=== PATIENT | female | born 1980 | race Caucasian/White ===

== ENCOUNTER 2020-11-01 15:46 | Inpatient (IN) | payer BC ==
[2020-11-01] MEDS ORDERED: Sodium Chloride 0.9% 10 ML Syringe FLUSH PRN (16:25)
[2020-11-01] MEDS ORDERED: Acetaminophen 325 MG Tab PO PRN (16:25)
[2020-11-01] MEDS ORDERED: Oxytocin/Normal Saline 30 UNIT/500 ML BAG IV SCH ×2 (16:30→18:15)
[2020-11-01] MEDS ORDERED: Lactated Ringers 1,000 ML IV SCH (16:30)
--- NOTE | 2020-11-01 16:36 | PCM.LDHP ---
L&D History of Present Illness - General Date of Service: 11/01/20 Admit Problem/Dx: Patient Status Order with Admit Dx/Problem 11/01/20 16:25 Patient Status [ADT] Routine Admission Diagnosis/Problem Admission Diagnosis/Problem Gestational diabetes mellitus Source of Information: Patient - History of Present Illness Introduction:: Patient is 40 yo at 39w0d who is here today for induction of labor. has been complicated by advanced maternal age and diet controlled gestational diabetes. Her blood sugars have been at goal throughout . Growth ultrasound was appropriate. She did have COVID in the first trimester but recovered without problems. She has been doing weekly BPP and NSTs for the past 4 weeks. Her BPP today was 6/8, 2 off for breathing. Her NST was reactive. Decision made to induce today as she as multiple indications for 39 week induction and abnormal BPP. Baby has been active. She's had bianca hernadez contractions. Denies vaginal bleeding, discharge, or leakage of fluid. She is GBS negative. - Related Data Allergies/Adverse Reactions: Allergies Allergy/AdvReac Type Severity Reaction Status Date / Time minerals [From Enviro Stress] Allergy Rash Verified 11/01/20 19:36 Penicillins Allergy Hives Verified 11/01/20 19:36 sulfamethoxazole Allergy Hives Verified 11/01/20 19:36 [From Bactrim] trimethoprim [From Bactrim] Allergy Hives Verified 11/01/20 19:36 vitamin B complex and C Allergy Rash Verified 11/01/20 19:36 [From Enviro Stress] vitamin E (d-alpha Allergy Rash Verified 11/01/20 19:36 tocopherol) [From Enviro Stress] Home Medications: Home Meds Ferrous Sulfate [Iron] 325 mg PO DAILY 10/04/20 [History] Pnv No.95/Ferrous Fum/Folic AC [ Caplet] 1 tab PO DAILY 10/04/20 [Histor y] Past Medical History Other Dermatologic History: History of oral cold sores - Infectious Disease History Other Infectious Disease History: History of COVID 19 infection in first trimester - Past Surgical History Head Surgeries/Procedures: Reports: None Social & Family History - Family History Family Medical History: No Pertinent Family History Cardiac: Reports: Hypertension Neurological: Reports: CVA, Parkinson's Oncologic: Reports: Breast, Lung - Tobacco Use Tobacco Use Status *Q: Former Tobacco User Tobacco Use Within Last Twelve Months: Cigarettes - Caffeine Use Caffeine Use: Reports: None - Alcohol Use Alcohol Use History: No - Recreational Drug Use Recreational Drug Use: No - Living Situation & Occupation Living situation: Reports: Occupation: Employed H&P Review of Systems - Review of Systems: Review Of Systems: See Below General: Denies: Fever, Chills HEENT: Denies: Headaches, Visual Changes Pulmonary: Denies: Shortness of Breath, Cough Cardiovascular: Denies: Chest Pain, Edema, Lightheadedness Gastrointestinal: Denies: Abdominal Pain, Diarrhea, Nausea, Vomiting Neurological: Denies: Headache, Weakness Hematologic/Lymphatic: Reports: Anemia L&D Exam - Exam Exam: See Below - Vital Signs Vital Signs: Vital Signs - 24 hr 11/01/20 11/01/20 11/01/20 16:00 16:30 18:30 Temperature [ 98.8 F 97.9 F 98.0 F Temporal] Pulse, 85 89 75 Peripheral [ Right Brachial] Respiratory 14 14 14 Rate Blood Pressure 124/80 142/85 H 132/84 [Right Upper Arm] 11/01/20 11/01/20 11/01/20 19:00 21:20 22:41 Temperature [ 97.4 F 97.4 F 97.7 F Temporal] Pulse, 79 69 74 Peripheral [ Right Brachial] Respiratory 18 16 18 Rate Blood Pressure 122/84 125/81 120/76 [Right Upper Arm] - OB Specific Contraction Frequency (min): occasional Movement: Active Heart Tones: Present Heart Rate (FHR) Variability: Moderate (6-25 bpm) Presentation: Vertex - Vivas Score Vivas Score Cervix Position: Posterior Vivas Score Consistency: Firm Vivas Score Effacement: 0-30% Vivas Score Dilation: Closed Vivas Score Infant's Station: -3 Vivas Score Total: 0 - Exam General: Alert, Oriented HEENT: Conjunctiva Clear Neck: Supple, Trachea Midline Lungs: Clear to Auscultation, Normal Respiratory Effort Cardiovascular: Regular Rate, Regular Rhythm GI/Abdominal Exam: Soft, Non-Tender Extremities: Non-Tender, No Pedal Edema Skin: Warm, Dry Neurological: Reflexes Equal Bilateral Psychiatric: Alert, Normal Affect, Normal Mood - Patient Data Result Diagrams: 11/01/20 18:25 - Problem List (1) AMA (advanced maternal age) multigravida 35+ SNOMED Code(s): 487329803 ICD Code: O09.529 - SUPERVISION OF ELDERLY MULTIGRAVIDA, UNSPECIFIED TRIMESTER Status: Acute Current Visit: Yes (2) Diet controlled gestational diabetes mellitus SNOMED Code(s): 82430266, 547733516, 820798138 ICD Code: O24.410 - GESTATIONAL DIABETES MELLITUS IN , DIET CONTROLLED Status: Acute Current Visit: Yes (3) Rubella immune SNOMED Code(s): 844626175 ICD Code: Z78.9 - OTHER SPECIFIED HEALTH STATUS Status: Acute Current Visit: Yes (4) Anemia affecting in third trimester SNOMED Code(s): 57101605, 91318863 ICD Code: O99.013 - ANEMIA COMPLICATING , THIRD TRIMESTER Status: Acute Current Visit: Yes (5) History of COVID-19 SNOMED Code(s): 742602119233573838, 642965048461243293 ICD Code: Z86.16 - PERSONAL HISTORY OF COVID-19 Status: Acute Current Visit: Yes Problem List Initiated/Reviewed/Updated: Yes Orders Last 24hrs: Active Orders 24 hr Category Date Time Status Patient Status [ADT] Routine ADT 11/01/20 16:25 Ordered Communication Order [RC] ASDIRECTED Care 11/01/20 16:25 Ordered Communication Order [RC] ASDIRECTED Care 11/01/20 16:25 Ordered Communication Order [RC] ASDIRECTED Care 11/01/20 16:25 Ordered Communication Order [RC] ASDIRECTED Care 11/01/20 16:25 Ordered Communication Order [RC] ASDIRECTED Care 11/01/20 16:25 Ordered Monitoring [RC] PER UNIT ROUTINE Care 11/01/20 16:25 Ordered Notify Provider Vital Signs OB [RC] ASDIRECTED Care 11/01/20 16:25 Ordered Notify Provider [RC] PRN Care 11/01/20 16:25 Ordered Notify Provider [RC] PRN Care 11/01/20 16:25 Ordered Notify Provider [RC] STAT Care 11/01/20 16:25 Ordered Peripheral IV Care [RC] . DIRECTED Care 11/01/20 16:32 Ordered Up ad Opal [RC] PER UNIT ROUTINE Care 11/01/20 16:25 Ordered Vaginal Exam [RC] PRN Care 11/01/20 16:25 Ordered Vital Signs [RC] PER UNIT ROUTINE Care 11/01/20 16:25 Ordered Regular Diet [DIET] Diet 11/01/20 Dinner Ordered CBC W/O DIFF,HEMOGRAM [HEME] Routine Lab 11/01/20 16:25 Ordered CORONAVIRUS COVID-19 DOMINGUEZ [MOLEC] Routine Lab 11/01/20 16:35 Ordered Acetaminophen [TylenoL] Med 11/01/20 16:25 Ordered 650 mg PO Q4H PRN Lactated Ringers [Ringers, Lactated] 1,000 ml Med 11/01/20 16:30 Ordered IV ASDIRECTED Oxytocin 30 Units in NS @ 2 MUNITS/MIN(500ml) Med 11/01/20 16:30 Ordered Oxytocin/Normal Saline [Pitocin in NS 30 UNIT/500 ML] 30 unit in 500 ml IV TITRATE Sodium Chloride 0.9% [Saline Flush] Med 11/01/20 16:25 Ordered 10 ml FLUSH ASDIRECTED PRN miSOPROStoL [Cytotec] Med 11/01/20 16:25 Ordered 25 mcg VAG Q4H PRN Peripheral IV Insertion Adult [OM.PC] Urgent Oth 11/01/20 16:25 Ordered Medication Orders Acetaminophen (Acetaminophen 325 Mg Tab) 650 mg PO Q4H PRN PRN Reason: Pain/Fever Lactated Ringer's (Ringers, Lactated) 1,000 mls @ 999 mls/hr IV ASDIRECTED ROSANGELA Oxytocin/Sodium Chloride (Pitocin In Ns 30 Unit/500 Ml) 30 unit in 500 mls @ 2 mls/hr IV TITRATE ROSANGELA; Protocol Misoprostol (Misoprostol 25 Mcg (1/4 Of 100 Mcg) Tab) 25 mcg VAG Q4H PRN PRN Reason: cervical ripening Sodium Chloride (Sodium Chloride 0.9% 10 Ml Syringe) 10 ml FLUSH ASDIRECTED PRN PRN Reason: Keep Vein Open Assessment/Plan Comment:: Admit for induction of labor. Will start with cytotec up to 8 times. Risks/benefits of induction were discussed with patient. AROM when appropriate. Does desire intrathecal. Anticipate vaginal delivery. Valeria Cali MD
[2020-11-01] MEDS ORDERED: Misoprostol 400 MCG (4 X 100 MCG TAB) RECTAL PRN (18:09)
[2020-11-01] MEDS ORDERED: Ondansetron 4 MG/2 ML SDV IVPUSH PRN (18:09)
[2020-11-01] MEDS ORDERED: Methylergonovine 0.2 MG/1 ML Amp IM PRN (18:09)
[2020-11-01] MEDS ORDERED: Lidocaine 1% 30 ML SDV INJECT PRN (18:09)
[2020-11-01] MEDS ORDERED: Tranexamic Acid 1,000 MG in Sodium Chloride 0.9% 100 ML IV PRN (18:09)
[2020-11-01] MEDS ORDERED: Carboprost Tromethamine 250 MCG/1 ML Amp IM PRN (18:09)
[2020-11-01] MEDS ORDERED: hydrOXYzine HCl 25 MG Tab PO PRN (18:13)
[2020-11-01] MEDS: Misoprostol 25 MCG (1/4 of 100 MCG) Tab VAG PRN ×2 (18:45→22:50)
[2020-11-02] MEDS: Lactated Ringers 1,000 ML IV SCH ×3 (02:30→07:35)
[2020-11-02] MEDS: Misoprostol 25 MCG (1/4 of 100 MCG) Tab VAG PRN (03:50)
[2020-11-02] MEDS ORDERED: Nalbuphine 10 MG/1 ML Vial IM ONE (04:48)
[2020-11-02] MEDS ORDERED: fentaNYL 100 MCG/2 ML SDV IVPUSH ONE (06:15)
[2020-11-02] MEDS ORDERED: Sodium Bicarbonate 4.2% 2.5 MEQ/5 ML SDV ONE ×2 (07:05→07:14)
[2020-11-02] MEDS ORDERED: fentaNYL 100 MCG/2 ML SDV ITHECAL ONE (07:05)
[2020-11-02] MEDS ORDERED: Sodium Chloride 0.9% 20 ML SDV ONE (07:05)
[2020-11-02] MEDS ORDERED: EPINEPHrine 1 MG/ML SDV ONE ×2 (07:05→07:14)
[2020-11-02] MEDS ORDERED: fentaNYL 100 MCG/2 ML SDV ONE (07:13)
--- NOTE | 2020-11-02 07:39 | PCM.SN.2 ---
- Free Text/Narrative Note: Intrathecal. Sitting position, sterile prep and drape. 1% lidocaine w bicarb for skinwheal to L2 L3 interspace x 2. Introducer x 2, 24 ga pencan x 3. 1:1000 pf epi wash, 20 mcg pf sufenta, 30 mcg pf fentanyl, 0.4 ml pf NS and 6 mg of 0.75% pf Marcaine injected after CSF aspiration. Pt to L lateral position . Procedure time 0705 to 0740
[2020-11-02] MEDS ORDERED: Acetaminophen 325 MG Tab PO PRN (08:28)
[2020-11-02] MEDS ORDERED: Docusate Sodium 100 MG Cap PO PRN (08:28)
[2020-11-02] MEDS ORDERED: Simethicone 80 MG Tab.Chew PO PRN (08:28)
[2020-11-02] MEDS ORDERED: Oxytocin 10 Units/1 ML SDV IM PRN (08:28)
[2020-11-02] MEDS ORDERED: Benzocaine/Menthol 20%-0.5% Spray 78 GM Cannister TOP PRN (08:28)
--- NOTE | 2020-11-02 08:45 | PCM.DEL ---
L & D Note - General Info Date of Service: 11/02/20 - Delivery Note Labor: Augmented by Oxytocin Cervical Ripening Method: Misoprostil Delivery Outcome: Livebirth Delivery Method: Spontaneous Vaginal Delivery-Single Presentation: Left Occiput Anterior (CELSA) Nuchal Cord: Present, Reduced Anesthesia Type: Intrathecal Amniotic Fluid Description: Bloody Episiotomy Type: None Laceration: 2nd Degree, Perineal Suture type: Vicryl Suture size: 3-0 Placenta: Intact, Spontaneous Cord: 3 Vessels Estimated Blood Loss: 350 Resuscitation Needed: Yes : Bulb Syringe, Stimulated, Warmed Provider: Valeria Cali Score 1 min: 7 Score 5 min: 9 Delivery Comments (Free Text/Narrative):: Patient is female who was admitted for induction of labor at 39w0d for diet controlled gestational diabetes, advanced maternal age, and abnormal BPP score of 6/8 on day of admission. She received 2 doses of cytotec. She did not require any pitocin. She progressed quickly and did get an intrathecal just prior to delivery. Baby did have recurrent variable decels into the 70s-80s with the fast cervical dilation. Mother progressed to complete and pushed for 30 minutes. Viable female infant was delivered via . Anterior shoulder was delivered with gentle traction. Body nuchal noted and reduced as baby delivered. was placed on maternal abdomen. Apgars were 7 and 9. Delayed cord clamping for 1 minute was done and cord was then clamped and cut. Placenta delivered intact with via active management. Oxytocin was initiated immediately following the delivery of the placenta. Rate increased to 999 mls/hr as uterine atony present with brisk bleeding. Bleeding did slow with fundal massage. Cervix, vagina, and perineum were explored. A 2nd degree perineal laceration was repaired int eh usual fashion. Mother and were stable and remained in delivery room. - General Info Date of Service: 11/02/20 - Patient Data Vitals - Most Recent: Last Vital Signs Temp 97.9 F 11/02/20 02:30 Pulse 70 11/02/20 02:30 Resp 16 11/02/20 02:30 BP 140/72 11/02/20 02:30 Pulse Ox Weight - Most Recent: 74.843 kg Lab Results Last 24 Hours: Laboratory Results - last 24 hr 11/01/20 11/01/20 Range/Units 16:55 18:25 WBC 8.6 (5.0-10.0) 10^3/uL RBC 3.60 L (4.2-5.4) 10^6/uL Hgb 11.1 L (12.0-16.0) g/dL Hct 33.2 L (37.0-47.0) % MCV 92.2 (80-100) fL MCH 30.8 (27.0-34.0) pg MCHC 33.4 (33.0-35.0) g/dL Plt Count 226 (150-450) 10^3/uL SARS-CoV-2 RNA (DOMINGUEZ) Negative (NEGATIVE) Med Orders - Current: Current Medications Acetaminophen (Acetaminophen 325 Mg Tab) 650 mg PO Q6H PRN PRN Reason: Pain/Fever Benzocaine/Menthol (Benzocaine/Menthol 20%-0.5% [place] 78 Gm Cannister) 0 gm TOP Q4H PRN PRN Reason: Perineal comfort measures Carboprost Tromethamine (Carboprost Tromethamine 250 Mcg/1 Ml Amp) 250 mcg IM ASDIRECTED PRN PRN Reason: HEMORRHAGE Docusate Sodium (Docusate Sodium 100 Mg Cap) 100 mg PO BID PRN PRN Reason: Constipation Hydroxyzine HCl (Hydroxyzine Hcl 25 Mg Tab) 25 mg PO BEDTIME PRN PRN Reason: Sleep Last Admin: 11/01/20 22:49 Dose: 25 mg Documented by: Oxytocin/Sodium Chloride (Pitocin In Ns 30 Unit/500 Ml) 30 unit in 500 mls @ 2 mls/hr IV TITRATE ROSANGELA; Protocol Tranexamic Acid 1,000 mg/ (Sodium Chloride) 110 mls @ 660 mls/hr IV ONETIME PRN PRN Reason: Bleeding Oxytocin/Sodium Chloride (Pitocin In Ns 30 Unit/500 Ml) 30 unit in 500 mls @ 2 mls/hr IV TITRATE ROSANGELA; Protocol Ibuprofen (Ibuprofen 800 Mg Tab) 800 mg PO Q8H PRN PRN Reason: Cramping Lidocaine HCl (Lidocaine 1% 30 Ml Sdv) 30 ml INJECT ASDIRECTED PRN PRN Reason: Perineal Repair Methylergonovine Maleate (Methylergonovine 0.2 Mg/1 Ml Amp) 0.2 mg IM ASDIRECTED PRN PRN Reason: Hemorrhage Misoprostol (Misoprostol 400 Mcg (4 X 100 Mcg Tab)) 800 mcg RECTAL ASDIRECTED PRN PRN Reason: Hemorrhage Ondansetron HCl (Ondansetron 4 Mg/2 Ml Sdv) 4 mg IVPUSH Q4H PRN PRN Reason: Nausea/Vomiting Oxytocin (Oxytocin 10 Units/1 Ml Sdv) 10 unit IM ONETIME PRN PRN Reason: Bleeding Prenat Multivit/[place]/Iron/Folic Ac ( Multivitamin With Calcium/Folic Acid/Iron Tab) 1 each PO DAILY [facility] Simethicone (Simethicone 80 Mg Tab.Chew) 80 mg PO Q4H PRN PRN Reason: Gas Sodium Chloride (Sodium Chloride 0.9% 10 Ml Syringe) 10 ml FLUSH ASDIRECTED PRN PRN Reason: Keep Vein Open Discontinued Medications Acetaminophen (Acetaminophen 325 Mg Tab) 650 mg PO Q4H PRN PRN Reason: Pain/Fever Epinephrine HCl (Epinephrine 1 Mg/Ml Sdv) Confirm Administered Dose 1 mg .ROUTE .STK-MED ONE Stop: 11/02/20 07:15 Fentanyl (Fentanyl 100 Mcg/2 Ml Sdv) 100 mcg IVPUSH ONETIME ONE Stop: 11/02/20 06:16 Last Admin: 11/02/20 06:25 Dose: 100 mcg Documented by: Fentanyl (Fentanyl 100 Mcg/2 Ml Sdv) Confirm Administered Dose 100 mcg .ROUTE .STK-MED ONE Stop: 11/02/20 07:14 Lactated Ringer's (Ringers, Lactated) 1,000 mls @ 999 mls/hr IV ASDIRECTED ROSANGELA Lactated Ringer's (Ringers, Lactated) 1,000 mls @ 125 mls/hr IV ASDIRECTED ROSANGELA Last Admin: 11/02/20 06:25 Dose: 125 mls/hr Documented by: Misoprostol (Misoprostol 25 Mcg (1/4 Of 100 Mcg) Tab) 25 mcg VAG Q4H PRN PRN Reason: cervical ripening Last Admin: 11/01/20 22:50 Dose: 25 mcg Documented by: Nalbuphine HCl (Nalbuphine 10 Mg/1 Ml Vial) 20 mg IM ONETIME ONE Stop: 11/02/20 04:49 Last Admin: 11/02/20 04:57 Dose: 20 mg Documented by: Sodium Bicarbonate (Sodium Bicarbonate 4.2% 2.5 Meq/5 Ml Sdv) Confirm Administered Dose 2.5 meq .ROUTE .STK-MED ONE Stop: 11/02/20 07:15 Sufentanil Citrate (Sufentanil 50 Mcg/1 Ml Amp) Confirm Administered Dose 50 mcg .ROUTE .STK-MED ONE Stop: 11/02/20 07:15 - Problem List & Annotations (1) AMA (advanced maternal age) multigravida 35+ SNOMED Code(s): 035451251 Code(s): O09.529 - SUPERVISION OF ELDERLY MULTIGRAVIDA, UNSPECIFIED TRIMESTER Status: Acute Current Visit: Yes (2) Diet controlled gestational diabetes mellitus SNOMED Code(s): 90777876, 362451902, 167681645 Code(s): O24.410 - GESTATIONAL DIABETES MELLITUS IN , DIET CONTROLLED Status: Acute Current Visit: Yes (3) Rubella immune SNOMED Code(s): 250352104 Code(s): Z78.9 - OTHER SPECIFIED HEALTH STATUS Status: Acute Current Visit: Yes (4) Anemia affecting in third trimester SNOMED Code(s): 17079071, 15962470 Code(s): O99.013 - ANEMIA COMPLICATING , THIRD TRIMESTER Status: Acute Current Visit: Yes (5) History of COVID-19 SNOMED Code(s): 527912072837051652, 084032836234790072 Code(s): Z86.16 - PERSONAL HISTORY OF COVID-19 Status: Acute Current Visit: Yes - Problem List Review Problem List Initiated/Reviewed/Updated: Yes - My Orders Last 24 Hours: My Active Orders 11/01/20 16:25 Patient Status [ADT] Routine Vital Signs [RC] PER UNIT ROUTINE Sodium Chloride 0.9% [Saline Flush] 10 ml FLUSH ASDIRECTED PRN Peripheral IV Insertion Adult [OM.PC] Urgent 11/01/20 16:30 Oxytocin/Normal Saline [Pitocin in NS 30 UNIT/500 ML] 30 unit in 500 ml IV TITRATE 11/01/20 16:32 Peripheral IV Care [RC] . DIRECTED 11/01/20 Dinner Regular Diet [DIET] 11/01/20 18:09 Carboprost Tromethamine [Hemabate DS] 250 mcg IM ASDIRECTED PRN Lidocaine 1% [Xylocaine-MPF 1%] 30 ml INJECT ASDIRECTED PRN Methylergonovine [Methergine] 0.2 mg IM ASDIRECTED PRN Ondansetron [Zofran] 4 mg IVPUSH Q4H PRN Tranexamic Acid [Cyklokapron] 1,000 mg Sodium Chloride 0.9% [Normal Saline] 100 ml IV ONETIME miSOPROStoL [Cytotec] 800 mcg RECTAL ASDIRECTED PRN Resuscitation Status Routine 11/01/20 18:10 Communication Order [RC] ASDIRECTED Saline Lock Insert [OM.PC] Routine 11/01/20 18:13 hydrOXYzine HCL [Atarax] 25 mg PO BEDTIME PRN 11/01/20 18:15 Oxytocin/Normal Saline [Pitocin in NS 30 UNIT/500 ML] 30 unit in 500 ml IV TITRATE 11/02/20 Breakfast Regular Diet [DIET] 11/02/20 08:00 Vital Signs [RC] PFP 11/02/20 08:28 Up ad Opal [RC] ASDIRECTED Acetaminophen [TylenoL] 650 mg PO Q6H PRN Benzocaine/Menthol [Dermoplast Pain Relief 20%-0.5% [place]] See Dose Instructions TOP Q4H PRN Docusate Sodium [Colace] 100 mg PO BID PRN Ibuprofen [Motrin] 800 mg PO Q8H PRN Oxytocin [Pitocin] 10 unit IM ONETIME PRN Simethicone 80 mg PO Q4H PRN Assess Lochia [WOMSER] Per Unit Routine Assess Uterine Involution [WOMSER] Per Unit Routine Breast Pump [WOMSER] Per Unit Routine Ice Therapy [OM.PC] Per Unit Routine Perineal Care [OM.PC] Per Unit Routine Saline Lock Insert [OM.PC] Urgent Sitz Bath [OM.PC] Per Unit Routine 11/02/20 09:00 Vit with Ca/FA/Iron [ Plus Iron] 1 each PO DAILY 11/02/20 Lunch Regular Diet [DIET] 11/02/20 Dinner Regular Diet [DIET] 11/03/20 08:28 CBC W/O DIFF,HEMOGRAM [HEME] Routine - Plan Plan:: Admit for induction of labor. Will start with cytotec up to 8 times. Risks/benefits of induction were discussed with patient. AROM when appropriate. Does desire intrathecal. Anticipate vaginal delivery. Valeria Cali MD
[2020-11-02] MEDS: Prenatal Multivitamin with Calcium/Folic Acid/Iron Tab PO SCH (10:11)
[2020-11-02] MEDS: Ibuprofen 800 MG Tab PO PRN (18:49)
[2020-11-03] MEDS: Ibuprofen 800 MG Tab PO PRN (06:57)
--- NOTE | 2020-11-03 09:50 | PCM.DCSUM1 ---
Discharge Summary - Hospital Course Free Text/Narrative:: Patient is female who was admitted at 39w0d for induction of labor secondary to AMA, diet controlled GDM and abnormal BPP of 6/8 on day of admission. She received 2 doses of cytotec. She delivered viable female without complication. Apgars were 7 and 9. She had an uneventful hospital stay. she desired 24 hour discharge. Mother is and was doing well. Mother and baby were discharged. Plan to follow up at 6 week post v isit. - Discharge Data Discharge Date: 11/03/20 Discharge Disposition: Home, Self-Care 01 Condition: Good - Referral to Home Health Primary Care Physician: Valeria Cali MD - Discharge Diagnosis/Problem(s) (1) AMA (advanced maternal age) multigravida 35+ SNOMED Code(s): 221797152 ICD Code: O09.529 - SUPERVISION OF ELDERLY MULTIGRAVIDA, UNSPECIFIED TRIMESTER Status: Acute (2) Diet controlled gestational diabetes mellitus SNOMED Code(s): 55938382, 279884525, 206706236 ICD Code: O24.410 - GESTATIONAL DIABETES MELLITUS IN , DIET CONTROLLED Status: Acute (3) Rubella immune SNOMED Code(s): 228372603 ICD Code: Z78.9 - OTHER SPECIFIED HEALTH STATUS Status: Acute (4) Anemia affecting in third trimester SNOMED Code(s): 98761602, 67796869 ICD Code: O99.013 - ANEMIA COMPLICATING , THIRD TRIMESTER Status: Acute (5) History of COVID-19 SNOMED Code(s): 702862503625293943, 197401165280359454 ICD Code: Z86.16 - PERSONAL HISTORY OF COVID-19 Status: Acute - Discharge Plan *PRESCRIPTION DRUG MONITORING PROGRAM REVIEWED*: Not Applicable *COPY OF PRESCRIPTION DRUG MONITORING REPORT IN PATIENT JOSHUA: Not Applicable Home Medications: Home Meds Ferrous Sulfate [Iron] 325 mg PO DAILY 10/04/20 [History] Pnv No.95/Ferrous Fum/Folic AC [ Caplet] 1 tab PO DAILY 10/04/20 [History] Acetaminophen [Tylenol] 650 mg PO Q6H PRN tablet 11/03/20 [Rx] Docusate Sodium [Colace] 100 mg PO BID PRN cap 11/03/20 [Rx] Ibuprofen [Motrin] 800 mg PO Q8H PRN tablet 11/03/20 [Rx] Patient Handouts: Depression, Baby Blues, Care After Vaginal Delivery - Discharge Summary/Plan Comment DC Time >30 min.: No Total # of Minutes for Discharge Time: 30 minutes were spent examining and talking with patient. Discharge Summary/Plan Comment: Discharge to home. Post cares reviewed. Red flag signs/symptoms discussed. Follow up at 6 week post visit. - Patient Data Vitals - Most Recent: Last Vital Signs Temp 98 F 11/03/20 07:16 Pulse 80 11/03/20 07:16 Resp 18 11/03/20 07:16 BP 124/78 11/03/20 07:16 Pulse Ox 98 11/03/20 07:16 Weight - Most Recent: 74.843 kg Lab Results - Last 24 hrs: Laboratory Results - last 24 hr 11/03/20 Range/Units 06:20 WBC 11.0 H (5.0-10.0) 10^3/uL RBC 3.53 L (4.2-5.4) 10^6/uL Hgb 10.9 L (12.0-16.0) g/dL Hct 33.0 L (37.0-47.0) % MCV 93.5 (80-100) fL MCH 30.9 (27.0-34.0) pg MCHC 33.0 (33.0-35.0) g/dL Plt Count 200 (150-450) 10^3/uL Med Orders - Current: Current Medications Acetaminophen (Acetaminophen 325 Mg Tab) 650 mg PO Q6H PRN PRN Reason: Pain/Fever Last Admin: 11/02/20 20:47 Dose: 650 mg Documented by: Benzocaine/Menthol (Benzocaine/Menthol 20%-0.5% [place] 78 Gm Cannister) 0 gm TOP Q4H PRN PRN Reason: Perineal comfort measures Last Admin: 11/02/20 10:09 Dose: 1 spray Documented by: Carboprost Tromethamine (Carboprost Tromethamine 250 Mcg/1 Ml Amp) 250 mcg IM ASDIRECTED PRN PRN Reason: HEMORRHAGE Docusate Sodium (Docusate Sodium 100 Mg Cap) 100 mg PO BID PRN PRN Reason: Constipation Last Admin: 11/02/20 20:48 Dose: 100 mg Documented by: Hydroxyzine HCl (Hydroxyzine Hcl 25 Mg Tab) 25 mg PO BEDTIME PRN PRN Reason: Sleep Last Admin: 11/01/20 22:49 Dose: 25 mg Documented by: Oxytocin/Sodium Chloride (Pitocin In Ns 30 Unit/500 Ml) 30 unit in 500 mls @ 2 mls/hr IV TITRATE ROSANGELA; Protocol Tranexamic Acid 1,000 mg/ (Sodium Chloride) 110 mls @ 660 mls/hr IV ONETIME PRN PRN Reason: Bleeding Oxytocin/Sodium Chloride (Pitocin In Ns 30 Unit/500 Ml) 30 unit in 500 mls @ 2 mls/hr IV TITRATE ROSANGELA; Protocol Last Titration: 11/02/20 11:10 Dose: Infused Documented by: Ibuprofen (Ibuprofen 800 Mg Tab) 800 mg PO Q8H PRN PRN Reason: Cramping Last Admin: 11/03/20 06:57 Dose: 800 mg Documented by: Lidocaine HCl (Lidocaine 1% 30 Ml Sdv) 30 ml INJECT ASDIRECTED PRN PRN Reason: Perineal Repair Methylergonovine Maleate (Methylergonovine 0.2 Mg/1 Ml Amp) 0.2 mg IM ASDIRECTED PRN PRN Reason: Hemorrhage Misoprostol (Misoprostol 400 Mcg (4 X 100 Mcg Tab)) 800 mcg RECTAL ASDIRECTED PRN PRN Reason: Hemorrhage Ondansetron HCl (Ondansetron 4 Mg/2 Ml Sdv) 4 mg IVPUSH Q4H PRN PRN Reason: Nausea/Vomiting Last Admin: 11/02/20 07:00 Dose: 4 mg Documented by: Oxytocin (Oxytocin 10 Units/1 Ml Sdv) 10 unit IM ONETIME PRN PRN Reason: Bleeding Prenat Multivit/[place]/Iron/Folic Ac ( Multivitamin With Calcium/Folic Acid/Iron Tab) 1 each PO DAILY ROSANGELA Last Admin: 11/02/20 10:11 Dose: Not Given Documented by: Simethicone (Simethicone 80 Mg Tab.Chew) 80 mg PO Q4H PRN PRN Reason: Gas Sodium Chloride (Sodium Chloride 0.9% 10 Ml Syringe) 10 ml FLUSH ASDIRECTED PRN PRN Reason: Keep Vein Open Discontinued Medications Acetaminophen (Acetaminophen 325 Mg Tab) 650 mg PO Q4H PRN PRN Reason: Pain/Fever Epinephrine HCl (Epinephrine 1 Mg/Ml Sdv) Confirm Administered Dose 1 mg .ROUTE .STK-MED ONE Stop: 11/02/20 07:15 Last Admin: 11/02/20 20:46 Dose: Not Given Documented by: Fentanyl (Fentanyl 100 Mcg/2 Ml Sdv) 100 mcg IVPUSH ONETIME ONE Stop: 11/02/20 06:16 Last Admin: 11/02/20 06:25 Dose: 100 mcg Documented by: Fentanyl (Fentanyl 100 Mcg/2 Ml Sdv) Confirm Administered Dose 100 mcg .ROUTE .STK-MED ONE Stop: 11/02/20 07:14 Last Admin: 11/02/20 20:46 Dose: Not Given Documented by: Lactated Ringer's (Ringers, Lactated) 1,000 mls @ 999 mls/hr IV ASDIRECTED ROSANGELA Lactated Ringer's (Ringers, Lactated) 1,000 mls @ 125 mls/hr IV ASDIRECTED ROSANGELA Last Admin: 11/02/20 07:35 Dose: 125 mls/hr Documented by: Misoprostol (Misoprostol 25 Mcg (1/4 Of 100 Mcg) Tab) 25 mcg VAG Q4H PRN PRN Reason: cervical ripening Last Admin: 11/01/20 22:50 Dose: 25 mcg Documented by: Nalbuphine HCl (Nalbuphine 10 Mg/1 Ml Vial) 20 mg IM ONETIME ONE Stop: 11/02/20 04:49 Last Admin: 11/02/20 04:57 Dose: 20 mg Documented by: Sodium Bicarbonate (Sodium Bicarbonate 4.2% 2.5 Meq/5 Ml Sdv) Confirm Administered Dose 2.5 meq .ROUTE .STK-MED ONE Stop: 11/02/20 07:15 Last Admin: 11/02/20 20:46 Dose: Not Given Documented by: Sufentanil Citrate (Sufentanil 50 Mcg/1 Ml Amp) Confirm Administered Dose 50 mcg .ROUTE .STK-MED ONE Stop: 11/02/20 07:15 Last Admin: 11/02/20 20:46 Dose: Not Given Documented by:
--- NOTE | 2020-11-03 09:50 | PCM.PNPP ---
- General Info Date of Service: 11/03/20 Subjective Update: Patient is post day 1 from vaginal delivery at 39w1d. She is doing well. Lochia is mild in degree. Reports pain is controlled with OTC medications. She is eating/drinking well. Denies nausea, vomiting. She has not had a bowel movement but is passing gas. She is , using a nipple shield. Denies fever, chills, lightheadedness. She desires 24 hour discharge. Functional Status: Reports: Pain Controlled - Review of Systems General: Denies: Fever HEENT: Denies: Headaches Pulmonary: Denies: Shortness of Breath, Cough Cardiovascular: Denies: Edema, Lightheadedness Gastrointestinal: Denies: Abdominal Pain, Nausea, Vomiting Neurological: Denies: Dizziness, Headache, Weakness - Patient Data Vital Signs - Most Recent: Last Vital Signs Temp 98 F 11/03/20 07:16 Pulse 80 11/03/20 07:16 Resp 18 11/03/20 07:16 BP 124/78 11/03/20 07:16 Pulse Ox 98 11/03/20 07:16 Weight - Most Recent: 74.843 kg Lab Results - Last 24 Hours: Laboratory Results - last 24 hr 11/03/20 Range/Units 06:20 WBC 11.0 H (5.0-10.0) 10^3/uL RBC 3.53 L (4.2-5.4) 10^6/uL Hgb 10.9 L (12.0-16.0) g/dL Hct 33.0 L (37.0-47.0) % MCV 93.5 (80-100) fL MCH 30.9 (27.0-34.0) pg MCHC 33.0 (33.0-35.0) g/dL Plt Count 200 (150-450) 10^3/uL Med Orders - Current: Current Medications Acetaminophen (Acetaminophen 325 Mg Tab) 650 mg PO Q6H PRN PRN Reason: Pain/Fever Last Admin: 11/02/20 20:47 Dose: 650 mg Documented by: Benzocaine/Menthol (Benzocaine/Menthol 20%-0.5% Gould 78 Gm Cannister) 0 gm TOP Q4H PRN PRN Reason: Perineal comfort measures Last Admin: 11/02/20 10:09 Dose: 1 spray Documented by: Carboprost Tromethamine (Carboprost Tromethamine 250 Mcg/1 Ml Amp) 250 mcg IM ASDIRECTED PRN PRN Reason: HEMORRHAGE Docusate Sodium (Docusate Sodium 100 Mg Cap) 100 mg PO BID PRN PRN Reason: Constipation Last Admin: 11/02/20 20:48 Dose: 100 mg Documented by: Hydroxyzine HCl (Hydroxyzine Hcl 25 Mg Tab) 25 mg PO BEDTIME PRN PRN Reason: Sleep Last Admin: 11/01/20 22:49 Dose: 25 mg Documented by: Oxytocin/Sodium Chloride (Pitocin In Ns 30 Unit/500 Ml) 30 unit in 500 mls @ 2 mls/hr IV TITRATE ROSANGELA; Protocol Tranexamic Acid 1,000 mg/ (Sodium Chloride) 110 mls @ 660 mls/hr IV ONETIME PRN PRN Reason: Bleeding Oxytocin/Sodium Chloride (Pitocin In Ns 30 Unit/500 Ml) 30 unit in 500 mls @ 2 mls/hr IV TITRATE ROSANGELA; Protocol Last Titration: 11/02/20 11:10 Dose: Infused Documented by: Ibuprofen (Ibuprofen 800 Mg Tab) 800 mg PO Q8H PRN PRN Reason: Cramping Last Admin: 11/03/20 06:57 Dose: 800 mg Documented by: Lidocaine HCl (Lidocaine 1% 30 Ml Sdv) 30 ml INJECT ASDIRECTED PRN PRN Reason: Perineal Repair Methylergonovine Maleate (Methylergonovine 0.2 Mg/1 Ml Amp) 0.2 mg IM ASDIRECTED PRN PRN Reason: Hemorrhage Misoprostol (Misoprostol 400 Mcg (4 X 100 Mcg Tab)) 800 mcg RECTAL ASDIRECTED PRN PRN Reason: Hemorrhage Ondansetron HCl (Ondansetron 4 Mg/2 Ml Sdv) 4 mg IVPUSH Q4H PRN PRN Reason: Nausea/Vomiting Last Admin: 11/02/20 07:00 Dose: 4 mg Documented by: Oxytocin (Oxytocin 10 Units/1 Ml Sdv) 10 unit IM ONETIME PRN PRN Reason: Bleeding Prenat Multivit/Meagher/Iron/Folic Ac ( Multivitamin With Calcium/Folic Acid/Iron Tab) 1 each PO DAILY ROSANGELA Last Admin: 11/02/20 10:11 Dose: Not Given Documented by: Simethicone (Simethicone 80 Mg Tab.Chew) 80 mg PO Q4H PRN PRN Reason: Gas Sodium Chloride (Sodium Chloride 0.9% 10 Ml Syringe) 10 ml FLUSH ASDIRECTED PRN PRN Reason: Keep Vein Open Discontinued Medications Acetaminophen (Acetaminophen 325 Mg Tab) 650 mg PO Q4H PRN PRN Reason: Pain/Fever Epinephrine HCl (Epinephrine 1 Mg/Ml Sdv) Confirm Administered Dose 1 mg .ROUTE .STK-MED ONE Stop: 11/02/20 07:15 Last Admin: 11/02/20 20:46 Dose: Not Given Documented by: Fentanyl (Fentanyl 100 Mcg/2 Ml Sdv) 100 mcg IVPUSH ONETIME ONE Stop: 11/02/20 06:16 Last Admin: 11/02/20 06:25 Dose: 100 mcg Documented by: Fentanyl (Fentanyl 100 Mcg/2 Ml Sdv) Confirm Administered Dose 100 mcg .ROUTE .STK-MED ONE Stop: 11/02/20 07:14 Last Admin: 11/02/20 20:46 Dose: Not Given Documented by: Lactated Ringer's (Ringers, Lactated) 1,000 mls @ 999 mls/hr IV ASDIRECTED ROSANGELA Lactated Ringer's (Ringers, Lactated) 1,000 mls @ 125 mls/hr IV ASDIRECTED ROSANGELA Last Admin: 11/02/20 07:35 Dose: 125 mls/hr Documented by: Misoprostol (Misoprostol 25 Mcg (1/4 Of 100 Mcg) Tab) 25 mcg VAG Q4H PRN PRN Reason: cervical ripening Last Admin: 11/01/20 22:50 Dose: 25 mcg Documented by: Nalbuphine HCl (Nalbuphine 10 Mg/1 Ml Vial) 20 mg IM ONETIME ONE Stop: 11/02/20 04:49 Last Admin: 11/02/20 04:57 Dose: 20 mg Documented by: Sodium Bicarbonate (Sodium Bicarbonate 4.2% 2.5 Meq/5 Ml Sdv) Confirm Administered Dose 2.5 meq .ROUTE .STK-MED ONE Stop: 11/02/20 07:15 Last Admin: 11/02/20 20:46 Dose: Not Given Documented by: Sufentanil Citrate (Sufentanil 50 Mcg/1 Ml Amp) Confirm Administered Dose 50 mcg .ROUTE .STK-MED ONE Stop: 11/02/20 07:15 Last Admin: 11/02/20 20:46 Dose: Not Given Documented by: - Interaction Support Person: - Recovery Exam Fundal Tone: Firm Fundal Level: 1 Fingerbreadths Below Umbilicus Fundal Placement: Midline Lochia Amount: Scant Lochia Color: Rubra/Red Perineum Description: Intact, Minimal Bruising/Swelling Episiotomy/Laceration: Approximated Bladder Status: Nonpalpable Urinary Elimination: Voided, Other (see below) Other Urinary Elimination, : 900mls - Exam General: Alert, Oriented HEENT: Mucous Membr. Moist/[place] Neck: Supple Lungs: Clear to Auscultation, Normal Respiratory Effort Cardiovascular: Regular Rate, Regular Rhythm GI/Abdominal Exam: Soft, Non-Tender, No Distention Extremities: Normal Inspection, Non-Tender, No Pedal Edema Skin: Warm, Dry Neurological: No New Focal Deficit Psy/Mental Status: Alert, Normal Affect, Normal Mood - Problem List & Annotations (1) AMA (advanced maternal age) multigravida 35+ SNOMED Code(s): 217818471 Code(s): O09.529 - SUPERVISION OF ELDERLY MULTIGRAVIDA, UNSPECIFIED TRIMESTER Status: Acute (2) Diet controlled gestational diabetes mellitus SNOMED Code(s): 59668909, 815791885, 526549035 Code(s): O24.410 - GESTATIONAL DIABETES MELLITUS IN , DIET CONTROLLED Status: Acute (3) Rubella immune SNOMED Code(s): 411101060 Code(s): Z78.9 - OTHER SPECIFIED HEALTH STATUS Status: Acute (4) Anemia affecting in third trimester SNOMED Code(s): 10822240, 51838152 Code(s): O99.013 - ANEMIA COMPLICATING , THIRD TRIMESTER Status: Acute (5) History of COVID-19 SNOMED Code(s): 417807079896801297, 845492089085087577 Code(s): Z86.16 - PERSONAL HISTORY OF COVID-19 Status: Acute (6) Vaginal delivery SNOMED Code(s): 490771135 Code(s): O80 - ENCOUNTER FOR FULL-TERM UNCOMPLICATED DELIVERY Status: Acute (7) First degree laceration of perineum during delivery, SNOMED Code(s): 549400393 Code(s): O70.0 - FIRST DEGREE PERINEAL LACERATION DURING DELIVERY Status: Acute - Problem List Review Problem List Initiated/Reviewed/Updated: Yes - My Orders Last 24 Hours: My Active Orders 11/02/20 09:00 Vit with Ca/FA/Iron [ Plus Iron] 1 each PO DAILY 11/02/20 Lunch Regular Diet [DIET] 11/02/20 Dinner Regular Diet [DIET] - Plan Plan:: Continue post cares. Pelvic rest for the next 6 weeks. Lochia expectations reviewed. Red flag sign/symptoms discussed. Patient desires discharge home. Will discharge home today and follow up at 6 week post visit. Continue vitamin and daily iron supplements. Valeria Cali MD
[2020-11-03] MEDS: Prenatal Multivitamin with Calcium/Folic Acid/Iron Tab PO SCH (11:24)
== END 2020-11-03 11:55 | disposition home or self-care (01) | DRG 560 ==
LOC: DL.OBCHECK 15:46 → DL.OB 16:25 → OBSVTOIN 16:25
PROVIDERS: ADMIT Family Medicine; ATTEND Family Medicine
PROC: 10E0XZZ Delivery of Products of Conception, External Approach (ICD-10-PCS; principal; 2020-11-02)
PROC: 3E0P7VZ Introduction of Hormone into Female Reproductive, Via Natural or Artificial Opening (ICD-10-PCS; 2020-11-02)
PROC: 0KQM0ZZ Repair Perineum Muscle, Open Approach (ICD-10-PCS; 2020-11-02)
PROC: 3E0R3BZ Introduction of Anesthetic Agent into Spinal Canal, Percutaneous Approach (ICD-10-PCS; 2020-11-02)
PROC: 00HU33Z Insertion of Infusion Device into Spinal Canal, Percutaneous Approach (ICD-10-PCS; 2020-11-02)
DX: O24.420 Gestational diabetes mellitus in childbirth, diet controlled (principal); Z37.0 Single live birth; O99.02 Anemia complicating childbirth; D64.9 Anemia, unspecified; Z20.822 Contact with and (suspected) exposure to COVID-19; Z3A.39 39 weeks gestation of pregnancy; Z86.16 Personal history of COVID-19; Z87.891 Personal history of nicotine dependence; Z88.0 Allergy status to penicillin; Z88.2 Allergy status to sulfonamides; Z88.1 Allergy status to other antibiotic agents; Z88.8 Allergy status to other drugs, medicaments and biological substances
CPT/HCPCS: 36415; 59025; 59409; 85027; A9270-GY; J0171; J2300; J2405; J2590; J3010; J7120; U0002